=== PATIENT | male | born 1995 | race African-American/Black ===

== ENCOUNTER 2018-02-28 11:06 | Emergency (ER) | payer OTHER ==
[2018-02-28] MEDS: AZITHROMYCIN 250 MG TAB PO (11:29)
[2018-02-28] MEDS: cefTRIAXone SOD 1 GM VIAL (J0696) IM (11:30)
[2018-02-28 11:52] LABS: KETONE, URINE AUTO RFX NEGATIVE (NEGATIVE); LEUKOCYTE ESTERASE UR AUTO RFX TRACE (NEGATIVE); NITRITE, URINE AUTO RFX NEGATIVE (NEGATIVE); RBC, URINE AUTO RFX 3 /HPF (0-3); SPECIFIC GRAVITY UR AUTO RFX 1.024 (1.002-1.035); SQUAM EPITHELIAL CELL UR AURFX 0 /HPF (0-6); WBC, URINE AUTO RFX 13 /HPF (0-3)
[2018-02-28 13:24] LABS: CHLAMYDIA DNA AMPLIFICATION POSITIVE (NEGATIVE); GC DNA AMPLIFICATION NEGATIVE (NEGATIVE)
== END 2018-02-28 12:20 | disposition home or self-care (01) ==
LOC: M ED 11:06
DX: Z20.2 Contact with and (suspected) exposure to infections with a predominantly sexual mode of transmission (principal)
CPT/HCPCS: J0696